=== PATIENT | female | born 2000 | race Caucasian/White ===

== ENCOUNTER 2024-04-21 03:54 | Emergency (ER) | payer BC ==
[~2024-04-21] VITALS: Ht 167.6 cm; Wt 90.9 kg
[~2024-04-21 03:54] MED LIST: ADDERALL XR20 MG PO; CEFTIN 250250 MG/TAB PO; INDERAL 10MG10 MG PO; LEVOXYL0.025 MG PO; PEPCID 20MG TAB20 MG PO; PROZAC40 MG PO
[2024-04-21 03:58] VITALS: TEMP 98.2
[2024-04-21] MEDS ORDERED: Ondansetron 4 MG/2 ML VIAL IV ONE (04:30)
[2024-04-21] MEDS ORDERED: NS 1,000 ML IV ONE ×2 (04:30→05:45)
[2024-04-21 04:42] LABS: COLLECTION METHOD CLEAN CATCH
[2024-04-21 04:46] LABS: BASO % 0.4 % (0.0-2.0); EOS % 0.5 % (0.0-4.0); GRAN # 5.9 K/mm3 (1.4-6.5); GRAN % 73.6 % (42.2-75.2); HEMATOCRIT 42.1 % (37.0-47.0); HEMOGLOBIN 13.8 g/dl (12.5-16.0); LYMPH # 1.7 K/mm3 (1.2-3.4); LYMPH % 21.6 % (20.0-51.0); MEAN CELL VOLUME 87 fl (80.0-100.0); MEAN CORPUSCULAR HEMOGLOBIN 28 pg (27-31); MEAN CORPUSCULAR HGB CONC 33 g/dl (33.0-37.0); MEAN PLATELET VOLUME 8.8 fl (7.4-10.4); MONO # 0.3 K/mm3 (0.1-0.6); MONO % 3.7 % (1.7-9.3); PLATELET COUNT 296 K/mm3 (130-400); RED BLOOD COUNT 4.86 M/mm3 (4.10-5.30); REDCELL DISTRIBUTION WIDTH-CV 12.1 % (11.5-14.5)
[2024-04-21 04:52] LABS: PH 5.5 (5.0-8.5); URINE APPEARANCE CLEAR (CLEAR/HAZY); URINE BLOOD NEGATIVE (NEGATIVE); URINE COLOR Dark Yellow (YELLOW); URINE GLUCOSE NEGATIVE (NEGATIVE); URINE KETONE 4+ (NEGATIVE); URINE NITRATE NEGATIVE (NEGATIVE); URINE PROTEIN(semi-quant) 1+ (NEGATIVE)
[2024-04-21 05:04] LABS: ALBUMIN 3.9 g/dL (3.5-5.0); BILIRUBIN,TOTAL 0.4 mg/dL (0.2-1.2); CALCIUM 9.2 mg/dL (8.4-10.2); CREATININE, serum 0.72 mg/dL (0.57-1.11); POTASSIUM 3.6 mEq/L (3.5-4.5); TOTAL PROTEIN 7.4 g/dl (6.2-8.1)
[2024-04-21] MEDS ORDERED: ZOFRAN ODT4 MG PO (06:15)
[2024-04-21 06:21] VITALS: BP 129/94; PULSE 83
== END 2024-04-21 06:25 | disposition home or self-care (01) ==
LOC: COL.ER 03:54
PROVIDERS: Emergency Medicine
DX: E86.0 Dehydration (principal); R11.2 Nausea with vomiting, unspecified; Z91.040 Latex allergy status
CPT/HCPCS: J2405; J7030